=== PATIENT | female | born 1990 | race Caucasian/White ===

== ENCOUNTER 2018-03-24 01:09 | Emergency (ER) | payer OTHER ==
[~2018-03-24] VITALS: Ht 162.6 cm; Wt 77.2 kg
[~2018-03-24 01:09] MED LIST: BCPILLS PO; SERT25TA PO
[2018-03-24 01:12] VITALS: TEMP 36.7; Ht 162.6 cm; Wt 77.2 kg
[2018-03-24] MEDS ORDERED: KETOROLAC TROMETHAMINE 60 MG/2 ML VIAL IM STA (01:36)
[2018-03-24] MEDS ORDERED: HYDROCODONE/ACETAMIN 5/325MG TAB PO ONE (01:45)
[2018-03-24] MEDS ORDERED: DEXAMETHASONE **PF** INJ 10 MG/ML VIAL IM ONE (01:45)
[2018-03-24] MEDS ORDERED: PROP20TA67 PO (02:00)
[2018-03-24] MEDS ORDERED: RIZA10TA18 PO (02:00)
[2018-03-24 02:57] VITALS: BP 127/80
[2018-03-24] MEDS ORDERED: PRED50TA PO (03:37)
[2018-03-24] MEDS ORDERED: CYCL10TA6 PO (03:37)
[2018-03-24 03:45] VITALS: PULSE 79; O2SAT 99
--- NOTE | 2018-03-24 07:28 | DIAGNOSTIC IMAGING REPORT ---
RIGHT SHOULDER 3 VIEWS CLINICAL HISTORY: Right shoulder pain. FINDINGS: 3 views of the right shoulder are obtained. No prior studies are available for comparison at the time of dictation. The skeletal structures are well mineralized. No fracture or dislocation is identified. The glenohumeral and acromioclavicular joints are preserved. The overlying soft tissues are within normal limits. The imaged right lung parenchyma appears clear. IMPRESSION: Unremarkable radiographic assessment of the right shoulder. Electronically signed by: Kali Castillo M.D. 03/24/2018 7:27 AM Dictated Date/Time: 03/24/2018 7:26 AM
--- NOTE | 2018-03-25 06:45 | EMERGENCY ROOM VISIT NOTE ---
ED Visit Note First contact with patient: 01:19 CHIEF COMPLAINT: Shoulder pain HISTORY OF PRESENT ILLNESS: This 27 year old female patient presents to the emergency department complaining of pain in the right shoulder worsening over the past 12 hours. The patient does not have injury or trauma to explain her symptoms. She states that she went to [facility] a few days ago for similar pain in the left shoulder, however this completely resolved. There is no limitation of motion of the arm because of the pain. The pain is moderate, constant and increases with motion of the hand and arm. The patient states the pain is sharp and 7/10. The patient has taken ibuprofen relief of the pain. No previous significant previous shoulder disease or injury. No numbness or tingling. No neck and no back pain. No chest pain or shortness of breath. No abdominal pain or nausea/vomiting. No cough. REVIEW OF SYSTEMS: A 6 system review of systems was performed with positives and pertinent negatives in the HPI. ALLERGIES: See EMR MEDICATIONS: See EMR PMH: History of migraines SOCIAL HISTORY: Lives with family PHYSICAL EXAM: Vital Signs: Reviewed nurse's notes, vital signs stable. GENERAL : White female, in no acute distress, but appears to be in pain, well-developed , well-nourished. MUSCULOSKELETAL: There is no deformity in the contour of the right shoulder and there are no colten deformities noted. There is no sulcus sign. There is tenderness over the proximal lateral humerus. The patient's range of motion is not limitied. Supraspinatus strength 5/5. There is no clavicle tenderness. No tenderness of the humerus, elbow, wrist, or hand. [place] Gauger strength 5/5. Radial pulse 2+. NECK: No tenderness to palpation over the cervical spine. HEART: Regular rate and rhythm without murmurs gallops or rubs. LUNGS: Clear to auscultation bilaterally without wheezes, rales or rhonchi. No accessory muscle use. No retractions. NEURO: The patient is alert and oriented to person, place, and time. Normal sensation to light and sharp touch. Capillary refill less than 2 seconds. RIGHT SHOULDER 3 VIEWS CLINICAL HISTORY: Right shoulder pain. FINDINGS: 3 views of the right shoulder are obtained. No prior studies are available for comparison at the time of dictation. The skeletal structures are well mineralized. No fracture or dislocation is identified. The glenohumeral and acromioclavicular joints are preserved. The overlying soft tissues are within normal limits. The imaged right lung parenchyma appears clear. IMPRESSION: Unremarkable radiographic assessment of the right shoulder. EMERGENCY DEPARTMENT COURSE: Physical exam and history were performed. Nursing notes and EMR were reviewed. The patient appears to have right shoulder pain for the past 1 day. She was given IM Toradol, IM Decadron, and a dose of oral Vicodin here in the department. X-ray was obtained and reviewed by myself and radiology as showing no acute process. The patient will be given conservative care instructions. She is to follow with orthopedics for further care management. She was given further instructions as below and otherwise invited back to the ER with any new, worsening, or concerning symptoms. Current/Historical Medications Scheduled Control Pills ( Control Pills), 1 TAB PO DAILY Cyclobenzaprine Hcl (Flexeril), 10 MG PO TID Prednisone (Prednisone), 50 MG PO DAILY Propranolol (Inderal), 20 MG PO BID Scheduled PRN Rizatriptan Benzoate (Maxalt), 10 MG PO DIRECTED PRN for Migraine Allergies Coded Allergies: Gabapentin (Verified Allergy, Intermediate, RASH, 03/24/18) Nortriptyline (Verified Allergy, Intermediate, RASH, 03/24/18) Topiramate (Verified Allergy, Intermediate, RASH, 03/24/18) Vital Signs Date Time Temp Pulse Resp B/P (MAP) Pulse Ox O2 Delivery O2 Flow Rate FiO2 03/24/18 03:45 79 17 99 03/24/18 02:57 86 18 127/80 96 Room Air 03/24/18 01:12 36.7 93 18 117/80 98 Room Air Medications Administered Medications (Trade) Dose Ordered Sig/Papo Route Start Time Stop Time Status Last Admin Dose Admin Ketorolac Tromethamine (Toradol Inj) 60 mg NOW STAT IM 03/24/18 01:36 03/24/18 01:38 DC 03/24/18 01:45 60 MG Dexamethasone Sodium Phosphate (Dexamethasone Inj Pf) 10 mg NOW ONCE IM 03/24/18 01:45 03/24/18 01:46 DC 03/24/18 01:45 10 MG Acetaminophen/ Hydrocodone Bitart ([place] 5/325 Tab) 1 tab NOW ONCE PO 03/24/18 01:45 5/21/18 01:46 DC 03/24/18 01:46 1 TAB Departure Information Impression Primary Impression: Right shoulder pain Dispostion Home / Self-Care Condition GOOD Prescriptions Cyclobenzaprine Hcl (FLEXERIL) 10 Mg Tab 10 MG PO TID for 7 Days, #21 TAB Prov: Sampson Flanagan PA-C 03/24/18 Prednisone (Prednisone) 50 Mg Tab 50 MG PO DAILY for 4 Days, #4 TAB Prov: Sampson Flanagan PA-C 03/24/18 Forms HOME CARE DOCUMENTATION FORM, Work Instructions, Additional Instructions: Patient was seen and evaluated today in the emergency department fo medical care. Return to work on 03/25/2018. Please excuse IMPORTANT VISIT INFORMATION Patient Instructions My [facility] Additional Instructions You were seen and evaluated today on an emergency basis only. This is not a substitute for, or an effort to provide, complete comprehensive medical care. It is not possible to recognize and treat all injuries or illnesses in a single emergency department visit. For this reason it is recommended that you followup with your primary care physician with any ongoing or persisting symptoms. For baseline pain relief you may alternate ibuprofen and acetaminophen every 4 hours for pain control. Take 600 mg ibuprofen (Advil) and then 4 hours later take 1000 mg acetaminophen (Tylenol). Do not take more than 3000 mg acetaminophen in a single day. Take prednisone as prescribed. Flexeril 1 tablet up to 3 times a day as needed for muscle spasms. No driving, working, or alcohol use with Flexeril. You are welcome to return to the emergency department anytime with new, worsening, or concerning symptoms. Work Instructions Additional Work Instructions: Patient was seen and evaluated today in the emergency department for medical care. Return to work on 03/25/2018. Please excuse
== END 2018-03-24 03:50 | disposition home or self-care (01) ==
LOC: C.EDB 01:10
DX: M25.511 Pain in right shoulder (principal); Z79.3 Long term (current) use of hormonal contraceptives; Z88.8 Allergy status to other drugs, medicaments and biological substances